=== PATIENT | female | born 1940 | race Two or more races ===

== ENCOUNTER 2020-02-17 08:28 | Outpatient (CLI) | payer OTHER | END 2020-02-17 08:42 | disposition home or self-care (01) | LOC: RX STUDY 08:28 | PROVIDERS: ATTEND Internal Medicine Gastroenterology | DX: R13.0 Aphagia (principal); R16.0 Hepatomegaly, not elsewhere classified ==

== ENCOUNTER 2021-11-16 08:26 | Outpatient (CLI) | payer OTHER | END 2021-11-16 08:30 | disposition home or self-care (01) | LOC: RX STUDY 08:26 | PROVIDERS: ATTEND Internal Medicine Gastroenterology | DX: R13.10 Dysphagia, unspecified (principal) ==

== ENCOUNTER 2024-01-23 14:29 | Outpatient (CLI) | payer OTHER | END 2024-01-23 14:34 | disposition home or self-care (01) | LOC: TOM 14:29 | PROVIDERS: ATTEND Orthopaedic Surgery | DX: M79.671 Pain in right foot (principal); M25.1 Fistula of joint; M19.071 Primary osteoarthritis, right ankle and foot ==

== ENCOUNTER 2024-04-09 09:16 | Outpatient (CLI) | payer OTHER ==
[2024-04-09 11:03] LABS: ALBUMIN 3.5 gm/dL (3.4-5.0); BILIRUBIN TOTAL 0.68 mg/dL (0.3-1.2); CALCIUM 9.6 mg/dL (8.5-10.1); CREATININE SERUM 0.67 mg/dL (0.55-1.02); GFR 84.26; GLOBULINA 3.5 G/DL (2.4-3.5); MAGNESIUM 2.2 mg/dL (1.8-2.4); PHOSPHOROUS 3.7 mg/dL (2.5-4.9); POTASSIUM 4.76 mEq/L (3.5-5.1)
[2024-04-10 15:14] LABS: CALCIUM IONIZED 5.2 mg/dL (4.5-5.6)
== END 2024-04-09 09:17 | disposition home or self-care (01) ==
LOC: LAB 09:16
PROVIDERS: ATTEND Orthopaedic Surgery
DX: E55.9 Vitamin D deficiency, unspecified (principal); M85.9 Disorder of bone density and structure, unspecified; E56.1 Deficiency of vitamin K; E21.3 Hyperparathyroidism, unspecified; E88.89 Other specified metabolic disorders; M81.8 Other osteoporosis without current pathological fracture